=== PATIENT | female | born 1955 | race Two or more races ===

== ENCOUNTER 2025-04-05 14:45 | Emergency (ER) | payer OTHER, MEDICAID ==
[~2025-04-05] VITALS: Ht 160 cm; Wt 70.5 kg
--- NOTE | 2025-04-05 15:35 | ED.PDOC ---
HPI (NEURO) HPI Comments This is a 70 year old female presenting to the ED with chief complaint of left sided weakness and some left eye discomfort and blurriness. Patient reports that she has been experiencing sudden onset left sided weakness with associated left eye blurred vision since yesterday. Patient's BEFAST negative. Patient denies any numbness, tingling, chest pain, SOB, headache, dizziness, or syncope. Patient was mildly hypertensive on arrival. Patient does not look toxic. Chief Complaint: Eye Problem Time Seen by MD: 15:33 Primary Care Provider: MYRA Rice Notes: Nurses Notes, Medications, Allergies Information Source: Patient Mode of Arrival: Ambulatory Severity: Moderate Dizziness/Weakness Severity: Unable to do activities Timing: Days Duration: Since onset Prehospital treatment: None Weakness Location: (L) Sided Onset: At rest Circumstances: Spontaneous Symptoms: Weakness, Change of vision Before: Normal History of: None Modifying factors: Nothing Associated Signs and Symptoms: None Past Medical History PAST MEDICAL HISTORY: Denies Surgical History: Denies all surgeries DAILY RELEASE AND DUPE PRINTER History: No Pertinent DAILY RELEASE AND DUPE PRINTER History Family History Family History: Reviewed,noncontributory to illness Social History Smoker: Non-Smoker Alcohol: Denies ETOH Use Drugs: Denies Drug Use Lives In: Home Constitutional: denies: chills, diaphoresis, fatigue, fever, malaise, sweats, weakness, others EENTM: reports: blurred vision; denies: double vision, ear bleeding, ear discharge, ear drainage, ear pain, ear ringing, eye pain, eye redness, hearing loss, mouth pain, mouth swelling, nasal discharge, nose bleeding, nose congestion, nose pain, photophobia, tearing, throat pain, throat swelling, voice changes, others Respiratory: denies: cough, hemoptysis, orthopnea, SOB at rest, shortness of breath, SOB with excertion, stridor, wheezing, others Cardiovascular: denies: chest pain, dizzy spells, diaphoresis, Dyspnea on e xertion, edema, irregular heart beat, left arm pain, lightheadedness, palpitations, PND, syncope, others Gastrointestinal: denies: abdomen distended, abdominal pain, blood streaked bowels, constipated, diarrhea, dysphagia, difficulty swallowing, hematemesis, melena, nausea, poor appetite, poor fluid intake, rectal bleeding, rectal pain, vomiting, others Genitourinary: denies: abnormal vagina bleeding, burning, dyspareunia, dysuria, flank pain, frequency, hematuria, incontinence, pain, , vagina discharge, urgency, others Neurological: reports: left sided weakness; denies: dizziness, fainting, headache, left sided numbness, numbness, paresthesia, pre-existing deficit, right sided numbness, right sided weakness, seizure, speech problems, tingling, tremors, weakness, others Musculoskeletal: denies: back pain, gout, joint pain, joint swelling, muscle pain, muscle stiffness, neck pain, others Integumetry: denies: bruises, change in color, change in hair/nails, dryness, laceration, lesions, lumps, rash, wounds, others Allergic/Immunocompromised: denies: Difficulty Healing, Frequent Infections, Hives, Itching, others Hematologic/Lymphatic: denies: anemia, blood clots, easy bleeding, easy bruising, swollen glands, others Endocrine: denies: excessive hunger, excessive sweating, excessive thirst, excessive urination, flushing, intolerance to cold, intolerance to heat, unexplained weight gain, unexplained weight loss, others Psychiatric: denies: anxiety, bipolar disorder, depression, hopeless, panic disorder, schizophrenia, sleepless, suicidal, others All Other Systems: Reviewed and Negative Physical Exam General Appearance: Mild Distress (Patient had some moderate distress due to her left-sided concerns.), Obese HEENT: Pale Conjuntivae (L), PERRL/EOMI, Pharynx Normal, TMs Normal, Other (Unable to appreciate any abnormality or external visual concerns. IOP is 13. No signs of trauma.) Neck: Full Range of Motion, Non-Tender, Normal, Normal Inspection Respiratory: Chest Non-Tender, Lungs Clear, No Accessory Muscle Use, No Respiratory Distress, Normal Breath Sounds Cardiovascular: No Edema, No JVD, No Murmur, No Gallop, Normal Peripheral Pulses, Regular Rate/Rhythm Breast Exam: Deferred Gastrointestinal: No Organomegaly, Non Tender, No Pulsatile Mass, Normal Bowel Sounds, Soft Genitalia: Deferred Pelvic: Deferred Rectal: Deferred Extremities: Other (Patient displays 5+ over 5+ bilateral strength on upper extremities. No signs of gait anomalies or reduced strength concerns.) Neurologic: Alert, No Motor Deficits, Normal Affect, Normal Mood, No Sensory Deficits Cerebellar Function: Normal Reflexes: Normal Skin: Dry, Normal Color, Warm Lymphatic: No Adenopathy Was a procedure done? Was a procedure done?: No Differential Diagnosis (SZ) Seizure: Mass Lesion CVA: Pena's Palsy, CVA General Weakness: Anemia, Hypoglycemia, Other (UTI) X-Ray, Labs, Meds, VS Vital Signs Date Time Temp Pulse Resp B/P (MAP) Pulse Ox O2 Delivery O2 Flow Rate FiO2 04/05/25 15:17 98.0 65 16 157/87 (110) 97 98.0 04/05/25 15:09 66 Lab Test 04/05/25 17:22 04/05/25 15:30 Range/Units Urine Color Light-yellow Yellow Urine Clarity Clear Clear Urine pH 5.5 5.0-9.0 Urine Specific [place] 1.016 1.001-1.035 Urine Protein Negative Negative Urine Ketones Negative Negative Urine Blood Negative Negative /uL Urine Nitrite Negative Negative Urine Bilirubin Negative Negative Urine Urobilinogen Normal Negative mg/dL Urine Leukocyte Esterase 2+ Negative /uL Urine RBC 2 0 - 4 /hpf Urine Microscopic WBC 6 H 0-5 /HPF Urine Squamous Epithelial Cells Few <5 /hpf Urine Bacteria None seen None Seen /hpf Urine Glucose Normal Normal mg/dL White Blood Count 4.9 4.4-10.8 10^3/uL Red Blood Count 4.58 4.0-5.20 10^6/uL Hemoglobin 13.1 12.2-16.2 g/dL Hematocrit 38.6 36.0-46.0 % Mean Corpuscular Volume 84.4 80.0-100.0 fL Mean Corpuscular Hemoglobin 28.7 28.0-32.0 pg Mean Corpuscular Hemoglobin Concent 34.0 32.0-36.0 g/dL Red Cell Distribution Width 15.7 H 11.8-14.3 % Platelet Count 273 140-450 10^3/uL Mean Platelet Volume 7.1 6.9-10.8 fL Neutrophils (%) (Auto) 40.5 37.0-80.0 % Lymphocytes (%) (Auto) 49.5 10.0-50.0 % Monocytes (%) (Auto) 7.5 0.0-12.0 % Eosinophils (%) (Auto) 1.7 0.0-7.0 % Basophils (%) (Auto) 0.8 0.0-2.0 % Neutrophils # (Auto) 2.0 1.6-8.6 10 ^3/uL Lymphocytes # (Auto) 2.4 0.4-5.4 10 ^3/uL Monocytes # (Auto) 0.4 0-1.3 10 ^3/uL Eosinophils # (Auto) 0.1 0-0.8 10 ^3/uL Basophils # (Auto) 0 0-0.2 10 ^3/uL Nucleated Red Blood Cells 0.1 % Sodium Level 142 136-145 mmol/L Potassium Level 3.5 3.5-5.1 mmol/L Chloride Level 100 98-107 mmol/L Carbon Dioxide Level 34 H 20-31 mmol/L Anion Gap 8 5-15 Blood Urea Nitrogen 14 9-23 mg/dL Creatinine 0.81 0.550-1.02 mg/dL Glomerular Filtration Rate Calc 77 >90 mL/min BUN/Creatinine Ratio 17.3 10.0-20.0 Serum Glucose 105 74-106 mg/dL Lactic Acid Level 1.5 0.4-2.0 mmol/L Calcium Level 9.2 8.7-10.4 mg/dL Troponin I High Sensitivity 5 </=34 ng/L B-Type Natriuretic Peptide 96.90 0-100 pg/mL CT Head: FINDINGS: There is no evidence of acute intracranial hemorrhage, extra-axial collection, mass effect, midline shift, herniation or hydrocephalus. The ventricles, sulci and cisterns are age appropriate. The nam-white differentiation is intact. Patchy periventricular and subcortical white matter hypoattenuation is no nspecific but may be related to small vessel ischemic disease. The visualized paranasal sinuses and mastoid air cells are clear. The surrounding soft tissues and osseous structures are unremarkable. IMPRESSION: 1. No acute intracranial abnormality. X-Ray, Labs, Meds, VS Comment All studies performed the ED were evaluated by me personally. Laboratories were unremarkable for any systemic process including unremarkable cardiac markers. EKG revealed a sinus rhythm with a rate of 66. Low voltage in precordial leads, CT interval 196 and QT interval 436. CT study of the head was unremarkable for any intracranial process or neoplasm. Urinalysis confirmed a urinary tract infection. Patient was given her 1st dose of antibiotics prior to discharge. Advised patient utilize antibiotics as directed until completion. Additionally, if her symptoms continue, patient will need to follow up with the primary care provider for discussions and possible neurological evaluation. Time of 1ST Reevaluation: 18:35 Reevaluation 1ST: Improved Consultation: PCP Patient Education/Counseling: Diagnosis, Treatment Family Education/Counseling: Diagnosis, Treatment, No Family Present Departure 1 Departure Time of Disposition: 18:35 Impression: Primary Impression: Weakness Additional Impressions: Eye abnormality UTI (urinary tract infection) Disposition: HOME / SELF CARE / HOMELESS Condition: Stable Additional Instructions: Advised patient utilize good hydration and healthy nutrition for the next few weeks as well as utilizing antibiotics as directed until completion. Patient should follow up with the primary care provider in the next few days for re- evaluation. Patient should follow up with robotics technician in the next day or two for definitive evaluation and management. e-Prescriptions Cephalexin (KEFLEX CAPSULE) 250 Mg Cp 1 CAP PO QID for 5 Days, #20 CAP Prov: CHELSEA CULVER PAC 04/05/25 Discharged With: Self, Friend Critical Care Note Critical Care Time?: No Stability Stability form required: No Heart Score Heart Score: Heart Score Response (Comments) Value History N/A 0 EKG N/A 0 Age N/A 0 Risk Factors N/A 0 Troponin N/A 0 Total 0 I personally scribed for CHELSEA CULVER PAC ([email or web address]) on 04/05/25 at 15:35. Electronically submitted by Trip Asencio ([email or web address]). I personally scribed for CHELSEA CULVER PAC ([email or web address]) on 04/05/25 at 16:27. Electronically submitted by Trip Asencio ([email or web address]). CHELSEA CULVER PAC Apr 05, 2025 15:35
[2025-04-05 15:44] LABS: Basophils # (auto) 0 10 ^3/uL (0-0.2); Basophils % (auto) 0.8 % (0.0-2.0); Eosinophils # (auto) 0.1 10 ^3/uL (0-0.8); Eosinophils % (auto) 1.7 % (0.0-7.0); Hematocrit 38.6 % (36.0-46.0); Hemoglobin 13.1 g/dL (12.2-16.2); Lymphocytes # (auto) 2.4 10 ^3/uL (0.4-5.4); Lymphocytes % (auto) 49.5 % (10.0-50.0); Mean Corpuscular Hemoglobin 28.7 pg (28.0-32.0); Mean Corpuscular Volume 84.4 fL (80.0-100.0); Monocytes # (auto) 0.4 10 ^3/uL (0-1.3); Monocytes % (auto) 7.5 % (0.0-12.0); Neutrophils % (auto) 40.5 % (37.0-80.0); Nucleated Red Blood Cells % 0.1 %; Platelet Count (auto) 273 10^3/uL (140-450); Red Blood Cells 4.58 10^6/uL (4.0-5.20); Red Cell Distribution Width 15.7 % (11.8-14.3); White Blood Cell 4.9 10^3/uL (4.4-10.8)
--- NOTE | 2025-04-05 15:50 | DVH ---
EXAM: CT HEAD WITHOUT CONTRAST INDICATION: Left-sided weakness, left eye discomfort TECHNIQUE: CT of the head without intravenous contrast. Radiation Dose : 1. Head: CT Dose: CTDI volume is 52 mGy. Dose-length product is 756 mGy*cm The dose indicators for CT are the volume Computed Tomography (CT) Dose Index (CTDIvol) and the Dose Length Product (DLP), and are measured in units of mGy and mGy-cm, respectively. These indicators are not patient dose, but values generated from the CT scanner acquisition factors. The report includes radiation exposure data for exposures received during this examination. COMPARISON: None FINDINGS: There is no evidence of acute intracranial hemorrhage, extra-axial collection, mass effect, midline s hift, herniation or hydrocephalus. The ventricles, sulci and cisterns are age appropriate. The nam-white differentiation is intact. Patchy periventricular and subcortical white matter hypoattenuation is nonspecific but may be related to small vessel ischemic disease. The visualized paranasal sinuses and mastoid air cells are clear. The surrounding soft tissues and osseous structures are unremarkable. IMPRESSION: 1. No acute intracranial abnormality. Radiation optimization: All CT scans at this facility use at least one of these dose optimization lm hniques: automated exposure control mA and/or kV adjustment per patient size (includes targeted exam s where dose is matched to clinical indication) or iterative reconstruction.
[2025-04-05 15:53] LABS: Anion Gap 8 (5-15); Chloride 100 mmol/L (98-107); Potassium 3.5 mmol/L (3.5-5.1); Sodium 142 mmol/L (136-145)
[2025-04-05 15:54] LABS: Calcium 9.2 mg/dL (8.7-10.4)
[2025-04-05 15:59] LABS: BUN/Creatinine Ratio 17.3 (10.0-20.0); Blood Urea Nitrogen 14 mg/dL (9-23); Carbon Dioxide 34 mmol/L (20-31); Glucose 105 mg/dL (74-106)
[2025-04-05 17:44] LABS: Urine Bacteria None Seen /hpf (None Seen)
[2025-04-05 17:52] LABS: Urine Blood Negative /uL (Negative); Urine Clarity Clear (Clear); Urine Color Light-Yellow (Yellow); Urine Protein, UAD Negative (Negative); Urine Specific Gravity 1.016 (1.001-1.035); Urine Squamous Epithelial Cell FEW /hpf (<5); Urine Urobilinogen Normal (Negative); Urine WBC 6 /HPF (0-5); Urine pH 5.5 (5.0-9.0)
[2025-04-05] MEDS ORDERED: CEPH250C PO (18:38)
[2025-04-05 19:00] VITALS: BP 149/72; PULSE 60; RESP 18; TEMP 98.1; O2SAT 97
[2025-04-05] MEDS: CEPHALEXIN 250 MG CAP PO ONE (19:00)
--- NOTE | 2025-04-09 14:10 | ECG ---
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
== END 2025-04-05 19:02 | disposition home or self-care (01) ==
LOC: ER 14:50
DX: R53.1 Weakness (principal); H57.9 Unspecified disorder of eye and adnexa; R42 Dizziness and giddiness; N39.0 Urinary tract infection, site not specified
CPT/HCPCS: 36415; 70450; 80048; 81001; 82947; 82962; 83605; 83880; 84484; 85025; 93005